=== PATIENT | male | born 1985 | race Caucasian/White ===

== ENCOUNTER 2017-06-01 13:42 | Emergency (ER) | payer SELFPAY ==
[~2017-06-01] VITALS: Ht 172.7 cm; Wt 63.5 kg
[2017-06-01 14:01] VITALS: BP 108/60
[2017-06-01] MEDS ORDERED: CLON1TAB3 PO (14:37)
[2017-06-01] MEDS ORDERED: ESCITALOPRAM OX10 MG PO (14:37)
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
== END 2017-06-01 14:56 | disposition home or self-care (01) ==
LOC: ER 13:42
DX: Z76.0 Encounter for issue of repeat prescription (principal); F98.8 Other specified behavioral and emotional disorders with onset usually occurring in childhood and adolescence; Z88.8 Allergy status to other drugs, medicaments and biological substances
CPT/HCPCS: 99283

== ENCOUNTER 2017-10-11 14:36 | Emergency (ER) | payer SELFPAY ==
[2017-10-11] MEDS ORDERED: CONTRAST GIVEN MC (15:45)
[2017-10-11 16:12] LABS: BASO % 0 % (0-3); EOS # 0.1 x10^3/uL (0.0-0.7); EOS % 0 % (0-3); HEMATOCRIT 50.4 % (39.0-53.0); HEMOGLOBIN 16.9 g/dL (13.0-17.5); LYMPH # 0.4 x10^3/uL (1.0-4.8); LYMPH % 3 % (24-48); MEAN CORPUSCULAR HEMOGLOBIN 31 pg (25-35); MEAN CORPUSCULAR HGB CONC 34 g/dL (31-37); MEAN CORPUSCULAR VOLUME 93 fL (79-100); MONO # 0.6 x10^3/uL (0.0-1.1); MONO % 4 % (0-9); NEUT # 14.5 x10^3uL (1.8-7.7); NEUT % 93 % (31-73); PLATELET COUNT 294 x10^3/uL (140-400); RED BLOOD COUNT 5.41 x10^6/uL (4.30-5.70); RED CELL DISTRIBUTION WIDTH 13.8 % (11.5-14.5); WHITE BLOOD COUNT 15.6 x10^3/uL (4.0-11.0)
[2017-10-11 16:14] LABS: ADD MAN DIFF? YES
[2017-10-11 16:43] LABS: ANION GAP 15 (6-14); BLOOD UREA NITROGEN 25 mg/dL (8-26); BUN/CREATININE RATIO 25 (6-20); CALCIUM 10.1 mg/dL (8.5-10.1); CARBON DIOXIDE 25 mmol/L (21-32); CHLORIDE 100 mmol/L (98-107); GFR 86.1; GLUCOSE 102 mg/dL (70-99); POTASSIUM 4.1 mmol/L (3.5-5.1); SODIUM 140 mmol/L (136-145)
[2017-10-11 16:48] LABS: BILIRUBIN,URINE SMALL (NEG); CLARITY,URINE CLEAR; COLOR,URINE AMBER; GLUCOSE,URINE NEGATIVE (NEG); NITRITE,URINE NEGATIVE (NEG); PROTEIN,URINE NEGATIVE (NEG-TRACE); UROBILINOGEN,URINE 0.2 mg/dL (0.2 mg/dL)
[2017-10-11 16:54] LABS: ALBUMIN 4.9 g/dL (3.4-5.0); ALBUMIN/GLOBULIN RATIO 1.2 (1.0-1.7); ALK PHOS 72 U/L (46-116); ALT (SGPT) 23 U/L (16-63); AST (SGOT) 23 U/L (15-37); LIPASE 80 U/L (73-393); TOTAL BILIRUBIN 2.2 mg/dL (0.2-1.0); TOTAL PROTEIN 8.9 g/dL (6.4-8.2)
[2017-10-11] MEDS: IOHEXOL 300 MG/ML 100ML VIAL. IV (16:56)
[2017-10-11 17:09] LABS: BACTERIA,URINE 0 /HPF (0-FEW); RBC,URINE 0 /HPF (0-2); WBC,URINE OCC /HPF (0-4)
[2017-10-11 17:10] LABS: HYALINE CASTS, URINE OCCASIONAL /HPF
[2017-10-11 20:59] LABS: % EOS 1 % (0-5); % LYMPHS 4 % (24-48); % MONOS 2 % (0-10); % SEGS 93 % (35-66); PLATELET CLUMP PRESENT; PLT ESTIMATE ADEQUATE (ADEQUATE)
[2017-10-11 21:00] LABS: OVALOCYTES OCC; POLYCHROMASIA SLIGHT
== END 2017-10-11 19:20 | disposition left against medical advice (07) ==
LOC: ER 14:36
DX: R10.13 Epigastric pain (principal); F32.9 Major depressive disorder, single episode, unspecified; F41.9 Anxiety disorder, unspecified
CPT/HCPCS: 36415; 74177; 80053; 81001; 83690; 85007; 85025; 93005; 99285-25; Q9967

== ENCOUNTER 2018-11-22 18:38 | Emergency (ER) | payer SELFPAY ==
[~2018-11-22] VITALS: Ht 172.7 cm; Wt 61.2 kg
[~2018-11-22 18:38] MED LIST: CLON1TAB11 PO; ESCITALOPRAM OX10 MG PO
[2018-11-22] MEDS ORDERED: ONDANSETRON ODT 4 MG TAB.RAPDIS. PO ONE (19:00)
[2018-11-22] MEDS ORDERED: LIDO:MAALOX 1:1 20 ML SINGLE DOSE. SWSW ONE (19:00)
[2018-11-22] MEDS ORDERED: FAMOTIDINE 20 MG TABLET. PO ONE (19:00)
[2018-11-22 19:18] VITALS: BP 100/71
--- NOTE | 2018-11-22 19:50 | PHYS DOC ---
Past Medical History Past Medical History: Anxiety, Depression, Pancreatitis, Other Additional Past Medical Histor: ADD Past Surgical History: No Surgical History Additional Information: < 0.25 PPD Alcohol Use: Occasionally Drug Use: Heroin, Methamphetamine Social History Narrative: LAST USED METH 11/21/2018 Adult General Chief Complaint Chief Complaint: ABDOMINAL PAIN HPI HPI Patient is a 33 year old MALE with history of pancreatitis who presents acute onset epigastric pain radiating to her chest 30 minutes prior to ED arrival. Pain described as sharp and burning rated moderate to severe. Patient was eating chicken wings at this time here denies choking, coughing spell. Reports nausea with vomiting 1. No flank pain, back pain. No hematemesis, coffee- ground emesis or foreign body sensation. No melena or hematochezia. No other acute symptoms or complaints. Review of Systems Review of Systems Review symptoms as per history of present illness. All other review symptoms are negative.] All other systems were reviewed and found to be within normal limits, except as documented in this note. Current Medications Current Medications Current Medications Medications (Trade) Dose Ordered Sig/Ayden Start Time Stop Time Status Last Admin Dose Admin Famotidine (Pepcid) 20 mg 1X ONCE 11/22/18 19:00 11/22/18 19:01 DC 11/22/18 19:00 20 MG Multi-Ingredient Mouthwash/Gargle (Gi Cocktail) 20 ml 1X ONCE 11/22/18 19:00 11/22/18 19:01 DC 11/22/18 19:01 20 ML Ondansetron HCl (Zofran Odt) 4 mg 1X ONCE 11/22/18 19:00 11/22/18 19:01 DC 11/22/18 19:00 4 MG Allergies Allergies Allergies Coded Allergies Type Severity Reaction Last Updated Verified promethazine Allergy Intermediate 11/22/18 Yes Physical Exam Physical Exam Constitutional: Well developed, well nourished, discomfort secondary to pain.. [ ] HENT: Normocephalic, atraumatic, bilateral external ears normal, oropharynx moist, nose normal. [] Eyes: PERRLA, EOMI, conjunctiva normal, no discharge. [] Neck: Normal range of motion, no tenderness, supple, no stridor. [] Cardiovascular:Heart rate regular rhythm, no murmur [] Lungs & Thorax: Bilateral breath sounds clear to auscultation [] Abdomen: Bowel sounds normal, soft, epigastric pain, tenderness reproducing complaint. No rebound rigidity or guarding[] Skin: Warm, dry. [] Back: No tenderness. [] Extremities: No tenderness. [] Neurologic: Alert and oriented X 3, normal motor function, normal sensory function, no focal deficits noted. [] Psychologic: Affect normal, judgement normal, mood normal. [] Current Patient Data Vital Signs Vital Signs Date Time Temp Pulse Resp B/P (MAP) Pulse Ox O2 Delivery O2 Flow Rate FiO2 11/22/18 19:18 64 15 100/71 (81) 95 Room Air 11/22/18 18:43 98.3 98.3 EKG EKG [] Radiology/Procedures Radiology/Procedures [] Course & Med Decision Making Course & Med Decision Making Pertinent Labs and Imaging studies reviewed. (See chart for details) [Pain is fully resolved with Pepcid, Zofran and GI cocktail. Patient sleeping on reevaluation. Recommend supportive care, PCP follow-up. Return precautions reviewed.] Dragon Disclaimer Dragon Disclaimer This electronic medical record was generated, in whole or in part, using a voice recognition dictation system. Departure Departure Impression: Primary Impression: Esophagitis Additional Impression: Epigastric pain Disposition: HOME, SELF-CARE Condition: GOOD Patient Instructions: Esophagitis Additional Instructions: Please take Pepcid 20 mg OTC twice daily and Maalox as needed for additional relief. Avoid spicy food, caffeine and alcohol. Follow-up with your PCP in 3-5 days for reevaluation. Return to the ED if new or worsening symptoms. Problem Qualifiers LYNN FUENTES DO Nov 22, 2018 19:50
--- NOTE | 2018-11-24 13:51 | EKG ---
[facility] [address] [place] [address] Test Date: 2018-11-22 Test Time: 19:00:36 Pat Name: JORGE OKEEFE Department: Room: Gender: [employer] Manager: : 1985 Requested By: LYNN FUENTES Order Number: [id number] Reading MD: Tommie Ocasio Measurements Intervals [place] Rate: P: NC: QRS: QRSD: T: QT: QTc: Interpretive Statements Compared to ECG 10/11/2017 16:40:50 Sinus tachycardia no longer present Electronically Signed On 11-26-2018 8:58:41 [employer] by Tommie Ocasio
== END 2018-11-22 19:39 | disposition home or self-care (01) ==
LOC: ER 18:38
DX: K20.9 Esophagitis, unspecified (principal); R11.2 Nausea with vomiting, unspecified; F41.9 Anxiety disorder, unspecified; F32.9 Major depressive disorder, single episode, unspecified; F17.200 Nicotine dependence, unspecified, uncomplicated; Z88.8 Allergy status to other drugs, medicaments and biological substances
CPT/HCPCS: 93005; 99284; Q0162

== ENCOUNTER 2019-09-26 12:21 | Emergency (ER) | payer SELFPAY ==
[~2019-09-26] VITALS: Ht 172.7 cm; Wt 65.8 kg
[~2019-09-26 12:21] MED LIST changes: -CLON1TAB11 PO; +CLONAZEPAM1 MG PO
[2019-09-26] MEDS ORDERED: IV NORMAL SALINE 1000ML BAG 1,000 ML IV SCH (13:04)
[2019-09-26] MEDS ORDERED: fentaNYL PF VIAL 100 MCG/2 ML VIAL IV ONE (13:15)
[2019-09-26] MEDS ORDERED: ONDANSETRON PF 4 MG/2 ML VIAL. IV ONE (13:15)
[2019-09-26 13:16] LABS: BASO # 0.1 x10^3/uL (0.0-0.2); BASO % 1 % (0-3); EOS # 0.1 x10^3/uL (0.0-0.7); EOS % 1 % (0-3); HEMATOCRIT 39.4 % (39.0-53.0); HEMOGLOBIN 13.5 g/dL (13.0-17.5); LYMPH # 1.7 x10^3/uL (1.0-4.8); LYMPH % 24 % (24-48); MEAN CORPUSCULAR HEMOGLOBIN 32 pg (25-35); MEAN CORPUSCULAR HGB CONC 34 g/dL (31-37); MEAN CORPUSCULAR VOLUME 92 fL (79-100); MONO # 0.6 x10^3/uL (0.0-1.1); MONO % 8 % (0-9); NEUT # 4.8 x10^3/uL (1.8-7.7); NEUT % 66 % (31-73); PLATELET COUNT 265 x10^3/uL (140-400); RED BLOOD COUNT 4.28 x10^6/uL (4.30-5.70); RED CELL DISTRIBUTION WIDTH 13.4 % (11.5-14.5); WHITE BLOOD COUNT 7.2 x10^3/uL (4.0-11.0)
[2019-09-26 13:26] LABS: CALCIUM 9.1 mg/dL (8.5-10.1); CREATININE 1.1 mg/dL (0.7-1.3); GFR 76.2; POTASSIUM 4.4 mmol/L (3.5-5.1)
[2019-09-26] MEDS ORDERED: KETOROLAC 30 MG/ML VIAL. IVP ONE (13:30)
[2019-09-26 13:32] LABS: ALBUMIN 4.4 g/dL (3.4-5.0); ALBUMIN/GLOBULIN RATIO 1.2 (1.0-1.7); TOTAL BILIRUBIN 1.1 mg/dL (0.2-1.0)
[2019-09-26] MEDS ORDERED: MORPHINE SULFATE 10 MG/ML VIAL. IV ONE (13:45)
--- NOTE | 2019-09-26 14:11 | RAD ---
Examination: CT of the abdomen pelvis were performed without contrast HISTORY: History of left lower quadrant abdominal pain COMPARISON: 10/11/2017 TECHNIQUE: Axial CT images of the abdomen pelvis were performed without contrast. Coronal and sagittal reformats are performed Exposure: One or more of the following individualized dose reduction techniques were utilized for this examination: 1. Automated exposure control 2. Adjustment of the mA and/or kV according to patient size 3. Use of iterative reconstruction technique FINDINGS: Minimal groundglass airspace opacities identified in the left lung base likely atelectasis or infiltrates. No evidence of free air identified in the abdomen. The evaluation of the solid organs is limited due to lack of IV contrast. The evaluation of bowel is limited due to lack of oral contrast. The visualized noncontrasted liver, spleen, adrenals grossly appears unremarkable. The gallbladder is mildly distended. The stomach is mildly distended. The visualized pancreas grossly appears unremarkable. Small bowel is nondilated. Appendix is normal. Feces and gas noted in the colon Mild left-sided hydronephrosis and hydroureter is identified with a 4 mm calculus identified at the left ureterovesical junction. No evidence of lytic bony destructive lesion. IMPRESSION: 1. Mild left-sided hydronephrosis and hydroureter with a 4 mm calculus identified at the left uterovesical junction. 2. Minimal groundglass atelectasis or infiltrates left lung base likely atelectasis or infiltrates. Follow-up to resolution. Electronically signed by: Ryan Meléndez MD (09/26/2019 2:08 PM) [facility]
[2019-09-26] MEDS ORDERED: TAMSULOSIN 0.4 MG CAP.ER.24H. PO ONE (14:15)
[2019-09-26 15:02] LABS: BILIRUBIN,URINE NEGATIVE (NEG); CLARITY,URINE CLOUDY; COLOR,URINE AMBER; NITRITE,URINE NEGATIVE (NEG); PH,URINE 8.5; PROTEIN,URINE 100 mg/dL (NEG-TRACE)
[2019-09-26 15:07] LABS: BARBITURATES NEG (NEG); BENZODIAZEPINES NEG (NEG); CANNABINOIDS NEG (NEG); COCAINE NEG (NEG); METHADONE NEG (NEG); OPIATES POS (NEG); PHENCYCLIDINE NEG (NEG)
[2019-09-26 15:08] LABS: AMPHETAMINE/METHAMPHETAMINE NEG (NEG)
[2019-09-26 15:14] LABS: BACTERIA,URINE 0 /HPF (0-FEW); RBC,URINE TNTC /HPF (0-2)
[2019-09-26] MEDS ORDERED: TAMS0.4C97 PO (15:24)
[2019-09-26] MEDS ORDERED: IBUP-1007 PO (15:24)
--- NOTE | 2019-09-26 15:24 | PHYS DOC ---
Past Medical History Past Medical History: Anxiety, Depression, Pancreatitis, Other Additional Past Medical Histor: ADHD, OPIATE ADDICTION Past Surgical History: No Surgical History Alcohol Use: None Drug Use: Heroin, Methamphetamine Social History Narrative: PREVIOUS DRUG USE - NOW RECOVERING Adult General Chief Complaint Chief Complaint: ABDOMINAL PAIN [facility] HPI Patient is a 34 year old male with history of anxiety and depression, ADHD,. Heroine addiction on Suboxone who presents with complaint of abdominal pain. Patient complaining of sudden onset of left lower quadrant pain that started about an over prior to arrival to ER as a sharp and stabbing pain with radiation to the left groin without nausea and vomiting, urinary symptoms, fever and chills, diarrhea and constipation, history of kidney stones the same pain previously. Patient rated his pain 10 over 10. Review of Systems Review of Systems Constitutional: Denies fever or chills [] Eyes: Denies change in visual acuity, redness, or eye pain [] HENT: Denies nasal congestion or sore throat [] Respiratory: Denies cough or shortness of breath [] Cardiovascular: No additional information not addressed in HPI [] GI: Denies nausea, vomiting, bloody stools or diarrhea, reports abdominal pain : Denies dysuria or hematuria [] Musculoskeletal: Denies back pain or joint pain [] Integument: Denies rash or skin lesions [] Neurologic: Denies headache, focal weakness or sensory changes [] Endocrine: Denies polyuria or polydipsia [] All other systems were reviewed and found to be within normal limits, except as documented in this note. Current Medications Current Medications Current Medications Medications (Trade) Dose Ordered Sig/Ayden Start Time Stop Time Status Last Admin Dose Admin Fentanyl Citrate (Fentanyl 2ml Vial) 50 mcg 1X ONCE 09/26/19 13:15 09/26/19 13:16 DC 09/26/19 13:14 50 MCG Ketorolac Tromethamine (Toradol 30mg Vial) 30 mg 1X ONCE 09/26/19 13:30 09/26/19 13:31 DC 09/26/19 13:34 30 MG Morphine Sulfate (Morphine Sulfate) 5 mg 1X ONCE 09/26/19 13:45 09/26/19 13:46 DC 09/26/19 13:45 5 MG Ondansetron HCl (Zofran) 4 mg 1X ONCE 09/26/19 13:15 09/26/19 13:16 DC 09/26/19 13:14 4 MG Sodium Chloride 1,000 ml @ 1,000 mls/hr Q1H 09/26/19 13:04 09/26/19 14:03 DC 09/26/19 13:14 1,000 MLS/HR Tamsulosin HCl (Flomax) 0.4 mg 1X ONCE 09/26/19 14:15 09/26/19 14:18 DC 09/26/19 15:06 0.4 MG Allergies Allergies Allergies Coded Allergies Type Severity Reaction Last Updated Verified promethazine Allergy Intermediate 11/22/18 Yes Physical Exam Physical Exam Constitutional: Well developed, well nourished, moderate distress, non-toxic appearance. [] HENT: Normocephalic, atraumatic. Eyes: PERRLA, EOMI, conjunctiva normal, no discharge. [] Neck: Normal range of motion, no tenderness, supple, no stridor. [] Cardiovascular:Heart rate regular rhythm, no murmur [] Lungs & Thorax: Bilateral breath sounds clear to auscultation [] Abdomen: Bowel sounds normal, soft, no tenderness, no masses, no pulsatile masses. [] Skin: Warm, dry, no erythema, no rash. [] Back: No tenderness, no CVA tenderness. [] Extremities: No tenderness, no cyanosis, no clubbing, ROM intact, no edema. [] Neurologic: Alert and oriented X 3, no focal deficits noted. [] Psychologic: Affect anxious, judgement normal, mood normal. [] Current Patient Data Vital Signs Vital Signs Date Time Temp Pulse Resp B/P (MAP) Pulse Ox O2 Delivery O2 Flow Rate FiO2 09/26/19 13:45 20 96 Room Air 09/26/19 12:45 97.6 62 121/73 (89) 97.6 Lab Values Laboratory Tests Test 09/26/19 12:42 09/26/19 14:48 White Blood Count 7.2 x10^3/uL (4.0-11.0) Red Blood Count 4.28 x10^6/uL (4.30-5.70) L Hemoglobin 13.5 g/dL (13.0-17.5) Hematocrit 39.4 % (39.0-53.0) Mean Corpuscular Volume 92 fL (79-100) Mean Corpuscular Hemoglobin 32 pg (25-35) Mean Corpuscular Hemoglobin Concent 34 g/dL (31-37) Red Cell Distribution Width 13.4 % (11.5-14.5) Platelet Count 265 x10^3/uL (140-400) Neutrophils (%) (Auto) 66 % (31-73) Lymphocytes (%) (Auto) 24 % (24-48) Monocytes (%) (Auto) 8 % (0-9) Eosinophils (%) (Auto) 1 % (0-3) Basophils (%) (Auto) 1 % (0-3) Neutrophils # (Auto) 4.8 x10^3/uL (1.8-7.7) Lymphocytes # (Auto) 1.7 x10^3/uL (1.0-4.8) Monocytes # (Auto) 0.6 x10^3/uL (0.0-1.1) Eosinophils # (Auto) 0.1 x10^3/uL (0.0-0.7) Basophils # (Auto) 0.1 x10^3/uL (0.0-0.2) Sodium Level 143 mmol/L (136-145) Potassium Level 4.4 mmol/L (3.5-5.1) Chloride Level 104 mmol/L (98-107) Carbon Dioxide Level 27 mmol/L (21-32) Anion Gap 12 (6-14) Blood Urea Nitrogen 12 mg/dL (8-26) Creatinine 1.1 mg/dL (0.7-1.3) Estimated GFR (Cockcroft-Gault) 76.2 BUN/Creatinine Ratio 11 (6-20) Glucose Level 144 mg/dL (70-99) H Calcium Level 9.1 mg/dL (8.5-10.1) Total Bilirubin 1.1 mg/dL (0.2-1.0) H Aspartate Amino Transferase (AST) 29 U/L (15-37) Alanine Aminotransferase (ALT) 48 U/L (16-63) Alkaline Phosphatase 64 U/L (46-116) Total Protein 8.0 g/dL (6.4-8.2) Albumin 4.4 g/dL (3.4-5.0) Albumin/Globulin Ratio 1.2 (1.0-1.7) Urine Opiates Screen Pos (NEG) Urine Methadone Screen Neg (NEG) Urine Barbiturates Neg (NEG) Urine Phencyclidine Screen Neg (NEG) Urine Amphetamine/Methamphetamine Neg (NEG) Urine Benzodiazepines Screen Neg (NEG) Urine Cocaine Screen Neg (NEG) Urine Cannabinoids Screen Neg (NEG) Urine Ethyl Alcohol Neg (NEG) Laboratory Tests 09/26/19 12:42 Laboratory Tests 09/26/19 12:42 EKG EKG [] Radiology/Procedures Radiology/Procedures [][facility] [address] [place] [address] IMAGING REPORT Signed PATIENT: JORGE OKEEFE ACCOUNT: [id number] : 1985 LOCATION: ER AGE: 34 SEX: M EXAM STATUS: REG ER ORD. PHYSICIAN: BAYRON LITTLE MD REASON: left lower quadrant pain PROCEDURE: CT ABDOMEN PELVIS WO CONTRAST Examination: CT of the abdomen pelvis were performed without contrast HISTORY: History of left lower quadrant abdominal pain COMPARISON: 10/11/2017 TECHNIQUE: Axial CT images of the abdomen pelvis were performed without contrast. Coronal and sagittal reformats are performed Exposure: One or more of the following individualized dose reduction techniques were utilized for this examination: 1. Automated exposure control 2. Adjustment of the mA and/or kV according to patient size 3. Use of iterative reconstruction technique FINDINGS: Minimal groundglass airspace opacities identified in the left lung base likely atelectasis or infiltrates. No evidence of free air identified in the abdomen. The evaluation of the solid organs is limited due to lack of IV contrast. The evaluation of bowel is limited due to lack of oral contrast. The visualized noncontrasted liver, spleen, adrenals grossly appears unremarkable. The gallbladder is mildly distended. The stomach is mildly distended. The visualized pancreas grossly appears unremarkable. Small bowel is nondilated. Appendix is normal. Feces and gas noted in the colon Mild left-sided hydronephrosis and hydroureter is identified with a 4 mm calculus identified at the left ureterovesical junction. No evidence of lytic bony destructive lesion. IMPRESSION: 1. Mild left-sided hydronephrosis and hydroureter with a 4 mm calculus identified at the left uterovesical junction. 2. Minimal groundglass atelectasis or infiltrates left lung base likely atelectasis or infiltrates. Follow-up to resolution. Electronically signed by: Ryan Meléndez MD (09/26/2019 2:08 PM) [facility] DICTATED and SIGNED BY: RYAN MELÉNDEZ MD DATE: 09/26/19 4139 Course & Med Decision Making Course & Med Decision Making Pertinent Labs and Imaging studies reviewed. (See chart for details) Evolution of patient in ER showed 34-year-old male patient with complaining of sudden onset of left lower quadrant pain. Patient treated with IV fluid, fentanyl, Zofran, Toradol, morphine with improvement of his pain. CT showed 4 mm left ureteral stone. Patient was advised to increase fluid intake and follow up with urology on-call and strain all of his urine. Dragon Disclaimer Dragon Disclaimer This electronic medical record was generated, in whole or in part, using a voice recognition dictation system. Departure Departure Impression: Primary Impression: Renal colic on left side Additional Impression: Ureterolithiasis Disposition: HOME, SELF-CARE (at 1522) Condition: IMPROVED Referrals: NO PCP (PCP) Patient Instructions: Diet for Kidney Stones, Kidney Stones Additional Instructions: Drink plenty of liquids Follow-up with urology physician in 2-3 days Return to ER if not getting better Strain all of your urine Thank you for visiting [facility]. We appreciate you trusting us with your care. If any additional problems come up don't hesitate to return to visit us. Please follow up with your primary care provider so they can plan additional care if needed and know about the problem that you had. If symptoms worsen come back to the Emergency Department. Any concerning symptoms that start such as chest pain, shortness of air, weakness or numbness on one side of the body, running high fevers or any other concerning symptoms return to the ER. Scripts Ibuprofen (IBUPROFEN) 600 Mg Tablet 600 MG PO PRN Q6HRS PRN for PAIN, #20 TAB take with food or milk Prov: BAYRON LITTLE MD 09/26/19 Tamsulosin Hcl (FLOMAX) 0.4 Mg Cap.er.24h 1 CAP PO DAILY, #14 CAP 0 Refills Prov: BAYRON LITTLE MD 09/26/19 Problem Qualifiers BAYRON LITTLE MD Sep 26, 2019 15:24
[2019-09-26 15:26] VITALS: BP 111/71
== END 2019-09-26 15:36 | disposition home or self-care (01) ==
LOC: ER 12:21
DX: N13.2 Hydronephrosis with renal and ureteral calculous obstruction (principal); N23 Unspecified renal colic; N20.1 Calculus of ureter; F41.9 Anxiety disorder, unspecified; F32.9 Major depressive disorder, single episode, unspecified; F90.9 Attention-deficit hyperactivity disorder, unspecified type; F15.90 Other stimulant use, unspecified, uncomplicated; F12.10 Cannabis abuse, uncomplicated; Z79.899 Other long term (current) drug therapy; Z88.8 Allergy status to other drugs, medicaments and biological substances
CPT/HCPCS: 36415; 74176; 80053; 80307; 81001; 85025; 87086; 96374; 96375; 99285; J1885; J2270; J2405; J3010; J7030

== ENCOUNTER 2021-04-22 22:48 | Emergency (ER) | payer SELFPAY ==
[~2021-04-22] VITALS: Ht 172.7 cm; Wt 63.6 kg
[~2021-04-22 22:48] MED LIST changes: +IBUP-1007 PO; +TAMS0.4C97 PO
[2021-04-23] VITALS: BP 117/81
[2021-04-23] MEDS ORDERED: FLUORESCEIN OPHTH TEST STRIP. OD ONE (01:30)
[2021-04-23] MEDS ORDERED: TETRACAINE 0.5% OPHTH SOLUTION 4ML BOTTLE. OD ONE (01:30)
[2021-04-23] MEDS ORDERED: DEXT15DR5 LEFTEYE (02:05)
[2021-04-23] MEDS ORDERED: POLY10DR EACHEYE (02:05)
--- NOTE | 2021-04-23 02:06 | PHYS DOC ---
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 Reports he kept his contact lenses into long and woke up with a red eye, initially thought sawdust got in his eye. Has since removed his right contact lens. Denies any eye pain, decreased vision/vision loss or photophobia. Does report mucousy discharge. No associated cough, sore throat, lack of taste or smell, nausea, vomiting, cough, sinus pressure, earache or shortness of breath-denies use URI symptoms. Left eye is unaffected. Review of Systems: Review of Systems: Constitutional: Denies fever or chills. [] Eyes: Denies change in visual acuity. [] HENT: Denies nasal congestion or sore throat. [] Respiratory: Denies cough or shortness of breath. [] Cardiovascular: Denies chest pain or hemoptysis GI: Denies , nausea, vomiting, : Denies dysuria or hematuria Musculoskeletal: Denies back pain or swelling Integument: Denies rash or diaphoresis Neurologic: Denies headache or neck pain Psychiatric: Denies depression or anxiety. [] Heart Score: C/O Chest Pain: No Risk Factors: Risk Factors: DM, Current or recent (<one month) smoker, HTN, HLP, family history of CAD, obesity. Risk Scores: Score 0 - 3: 2.5% MACE over next 6 weeks - Discharge Home Score 4 - 6: 20.3% MACE over next 6 weeks - Admit for Clinical Observation Score 7 - 10: 72.7% MACE over next 6 weeks - Early Invasive Strategies Current Medications: Current Medications Medications (Trade) Dose Ordered Sig/Ayden Start Time Stop Time Status Last Admin Dose Admin Fluorescein Sodium (Ful-Nydia) 1 strip 1X ONCE 04/23/21 01:30 04/23/21 01:31 DC 04/23/21 01:55 1 STRIP Tetracaine HCl (Tetracaine) 1 drop 1X ONCE 04/23/21 01:30 04/23/21 01:31 DC 04/23/21 01:55 1 DROP Allergies: Allergies: Allergies Coded Allergies Type Severity Reaction Last Updated Verified promethazine Allergy Intermediate 11/22/18 Yes Physical Exam: PE: Constitutional: Well developed, well nourished, no acute distress, non-toxic appearance. HENT: Normocephalic, atraumatic, Eyes: PERRLA-4mm, EOMI, right conjunctival injection, no ciliary flush, no c orneal uptake with Johnson lamp and fluorescein exam/Michele sign negative, no dendritic lesions or ulcers, no foreign body visualized, tolerated exam with no epiphora or photophobia, normal-appearing pupil with no haziness or rockhard appearance Neck: Normal range of motion, supple, Cardiovascular: S1/2 present, regular rhythm Lungs & Thorax: Speaking in full sentences, bilateral equal chest rise, no tachypnea or increased work of breathing Skin: Warm, dry, no erythema, no rash. [] Extremities: No tenderness, no cyanosis, Neurologic: Alert and oriented X 3, no focal deficits noted. [] Psychologic: Affect normal, judgement normal, mood normal. [] Current Patient Data: Vital Signs: Vital Signs Date Time Temp Pulse Resp B/P (MAP) Pulse Ox O2 Delivery O2 Flow Rate FiO2 04/23/21 00:00 97.9 72 18 117/81 (84) 100 Room Air 97.9 EKG: EKG: [] Radiology/Procedures: Radiology/Procedures: [] Course & Med Decision Making: Course & Med Decision Making Pertinent Labs and Imaging studies reviewed. (See chart for details) Concern for right conjunctival irritation/injection, will treat for conjunctivitis. Will discharge home with strict ED return precautions were given for blurry vision or vision loss, severe eye pain, headache or neurologic deficit. Encouraged urgent outpatient follow-up with PMD and ophthalmology. Life-threatening processes were considered but are low suspicion at this time, given history, physical exam and ED workup. Pt was educated on all prescription medications and adverse effects. All patient's questions were answered and pt was stable at time of discharge. Life/limb-threatening differential includes but is not limited to, meningitis, encephalitis, intracranial hemorrhage, obstructive hydrocephaly, CVA, carbon monoxide poisoning, cerebral or cavernous venous thrombosis, hypertensive emergency, preeclampsia, giant cell arteritis, glaucoma, carotid or vertebral artery dissection, superior vena cava syndrome, infection, optic neuritis, or space-occupying lesions. I have spoken with the patient and/or caregivers. I explained the patient's condition, diagnoses and treatment plan based on the information available to me at this time. I have answered the patient and/or caregiver's questions and addressed any concerns. The patient and/or caregivers have a good understanding of patient's diagnosis, condition and treatment plan as can be expected at this point. Vital signs have been stable. Patient's condition is stable and appropriate for discharge from the emergency department. Patient will pursue further outpatient evaluation with primary care physician or other designated or consulting physician as outlined in the discharge instructions. The patient and/or caregivers are agreeable to this plan of care and follow-up instructions have been explained in detail. The patient and/or caregivers have received these instructions in written form and have expressed an understanding of the discharge instructions. The patient and/or caregivers are aware that any significant change of condition or worsening of symptoms should prompt immediate return to this or the closest emergency department or call to [facility] Disclaimer: Barby Disclaimer: This electronic medical record was generated, in whole or in part, using a voice recognition dictation system. Departure Departure Impression: Primary Impression: Conjunctivitis, right eye Additional Impression: Conjunctival injection Disposition: 01 HOME / SELF CARE / HOMELESS Condition: STABLE Referrals: NO PCP (PCP) Follow-up with your primary care physician in 24 to 48 hours OR FOLLOW UP WITH FAMILY MEDICINE: [address] [facility], [facility] [address] [place] [address] Patient Instructions: Conjunctivitis (Viral and Bacterial) Additional Instructions: FOLLOW UP WITH OPTHALMOLOGY: FOR DEFINITIVE MANAGEMENT [facility], [place] [address] [place], [address] [place] [address] EMERGENCY DEPARTMENT GENERAL DISCHARGE INSTRUCTIONS Thank you for coming to [facility] Emergency Department (ED) today and trusting us with you care. We trust that you had a positive experience in our Emergency Department. If you wish to speak to the department management, you may call the Director at [phone]. YOUR FOLLOW UP INSTRUCTIONS ARE FOLLOWS: 1. Do you have a private Doctor? If you do not have a private doctor, please ask for a resource list of physicians or clinics that may be able to assist you with follow up care. 2. The Emergency Physicain has interpreted your x-rays. The X-Ray specialist will also review them. If there is a change in the findings, you will be notified in 48 hours when at all possible. 3. A lab test or culture has been done, your results will be reviewed and you will be notified if you need a change in treatment. ADDITIONAL INSTRUCTIONS AND INFORMATION: 1. Your care today has been supervised by a physician who is specially trained in emergency care. Many problems require more than one evaluation for a complete diagnosis and treatment. We recommend that you schedule your follow up appointment as recommended to ensure complete treatment of you illness or injury. If you are unable to obtain follow up care and continue to have a problem, or if your condition worsens, we recommend that you return to the ED. 2. We are not able to safely determine your condition over the phone nor are we able to give sound medical advice over the phone. For these safety reasons, if you call for medical advice we will ask you to come to the ED for further evaluation. 3. If you have any questions regarding these discharge instructions please call the ED at [phone]. SAFETY INFORMATION: In the interest of safety, wellness, and injury prevention; we encourage you to wear your sealbelt, if you smoke; quite smoking, and we encourage family to use a protective helmet for bicycling and other sporting events that present an increased risk for head injury. IF YOUR SYMPTOMS WORSEN OR NEW SYMPTOMS DEVELOP, OR YOU HAVE CONCERNS ABOUT YOUR CONDITION; OR IF YOUR CONDITION WORSENS WHILE YOU ARE WAITING FOR YOUR FOLLOW UP APPOINTMENT; EITHER CONTACT YOUR PRIMARY CARE DOCTOR, THE PHYSICIAN WHOSE NAME AND NUMBER YOU WERE GIVEN, OR RETURN TO THE ED IMMEDIATELY. Scripts Dextran 70/Hypromellose (ARTIFICIAL TEARS EYE DROPS) 15 Ml Drops 1 DROP LEFTEYE Q1HR PRN for dry eye for 7 Days, #30 ML 0 Refills every hour while awake Prov: RICKIE EUCEDA DO 04/23/21 Polymyxin B Sulf/Trimethoprim (POLYTRIM EYE DROPS) 10 Ml Drops 2 DROP EACHEYE Q6HRS for 7 Days, #10 ML no contact lens x 1 week Prov: RICKIE EUCEDA DO 04/23/21 [facility],RICKIE Adkins DO Apr 23, 2021 02:06
== END 2021-04-23 02:19 | disposition home or self-care (01) ==
LOC: ER 22:48
DX: H10.9 Unspecified conjunctivitis (principal); F90.9 Attention-deficit hyperactivity disorder, unspecified type; Z87.891 Personal history of nicotine dependence
CPT/HCPCS: 99283

== ENCOUNTER 2021-12-15 20:33 | Emergency (ER) | payer OTHER ==
[~2021-12-15] VITALS: Ht 172.7 cm; Wt 63.6 kg
[~2021-12-15 20:33] MED LIST changes: +BUPR150T27 PO; +BUPR8TAB SL; +CLON0.1T PO; +DEXT15DR5 LEFTEYE; +POLY10DR EACHEYE
[2021-12-15 20:48] VITALS: BP 134/89
[2021-12-15] MEDS ORDERED: AMOX1TAB11 PO (21:16)
[2021-12-15] MEDS ORDERED: CIPR500T94 PO (21:16)
--- NOTE | 2021-12-15 21:18 | ED.ADGEN ---
Past Medical History Past Medical History: Anxiety, Depression, Pancreatitis, Other Additional Past Medical Histor: ADHD, OPIATE ADDICTION Past Surgical History: Other Additional Past Surgical Histo: LITHOTRIPSY Smoking Status: Current Every Day Smoker Alcohol Use: None Drug Use: Heroin, Methamphetamine General Adult EDM: Chief Complaint: ABRASION HPI: HPI: Patient is a 36 year old presenting with injury to the plantar aspect of his right foot. Patient states he was walking collecting firewood when he stepped on a metal piece that went through his shoe. Patient remove the piece intact. Patient is concerned because his tetanus is 7 years ago and a piece of metal was mena. His male to ambulate not since been cleaned it out. No systemic complaints Review of Systems: Review of Systems: All other systems within normal limits except for as noted in the HPI Allergies: Allergies: Allergies Coded Allergies Type Severity Reaction Last Updated Verified promethazine Allergy Intermediate 11/22/18 Yes Physical Exam: PE: Constitutional: Well developed, well nourished, no acute distress, non-toxic appearance. [] HENT: Normocephalic, atraumatic, bilateral external ears normal, nose normal. [] Eyes: PERRLA, conjunctiva normal, no discharge. [] Neck: No rigidity, supple, no stridor. [] Cardiovascular: Regular rate and rhythm, brisk cap refill [] Lungs & Thorax: Non labored symmetric respirations, no tachypnea or respiratory distress [] Abdomen: Soft, nondistended. Skin: Warm, dry, no erythema, no rash. Linear wound to the ball of right foot. No active bleeding, no foreign bodies, wound superficial [] Back: Unremarkable Extremities: No deformities, range of motion grossly intact, no lower extremity edema [] Neurologic: Alert and oriented X 3, no focal deficits noted. [] Psychologic: Affect normal, judgement normal, mood normal. [] Current Patient Data: Vital Signs: Vital Signs Date Time Temp Pulse Resp B/P (MAP) Pulse Ox O2 Delivery O2 Flow Rate FiO2 12/15/21 20:48 97.5 84 18 134/89 (104) 97 Room Air 97.5 EKG: EKG: [] Heart Score: C/O Chest Pain: No Risk Factors: Risk Factors: DM, Current or recent (<one month) smoker, HTN, HLP, family history of CAD, obesity. Risk Scores: Score 0 - 3: 2.5% MACE over next 6 weeks - Discharge Home Score 4 - 6: 20.3% MACE over next 6 weeks - Admit for Clinical Observation Score 7 - 10: 72.7% MACE over next 6 weeks - Early Invasive Strategies Radiology/Procedures: Radiology/Procedures: [] Course & Med Decision Making: Course & Med Decision Making Tetanus updated. Will treat patient with Pseudomonas coverage since the puncture wound within the sole of her shoe Barby Disclaimer: Barby Disclaimer: This electronic medical record was generated, in whole or in part, using a voice recognition dictation system. Departure Departure Impression: Primary Impression: Puncture wound of plantar aspect of right foot Disposition: HOME / SELF CARE / HOMELESS Condition: STABLE Referrals: NO PCP (PCP) Patient Instructions: Puncture Wound Scripts Amoxicillin/Potassium Clav (AMOX TR-K CLV 875-125 MG TAB) 1 Each Tablet 1 TAB PO BID for antibiotic for 7 Days, #14 TAB Prov: SCOT HANSEN MD 12/15/21 Ciprofloxacin Hcl (CIPRO) 500 Mg Tablet 1 TAB PO BID for antibiotic for 7 Days, #14 TAB 0 Refills Prov: SCOT HANSEN MD 12/15/21 SCOT HANSEN MD Dec 15, 2021 21:17
[2021-12-15] MEDS ORDERED: DIPHTH,PERTUSS(ACELL),TET TOX 0.5 ML DISP.SYRIN. VAX IM ONE (21:30)
[2021-12-15] MEDS ORDERED: CIPROFLOXACIN HCL 250 MG TABLET. PO ONE (21:30)
[2021-12-15] MEDS ORDERED: AMOXICILLIN/K CLAV 875/125MG TABLET. PO ONE (21:30)
== END 2021-12-15 22:00 | disposition home or self-care (01) ==
LOC: ER 20:33
DX: S91.331A Puncture wound without foreign body, right foot, initial encounter (principal); F17.200 Nicotine dependence, unspecified, uncomplicated; F90.9 Attention-deficit hyperactivity disorder, unspecified type; Z88.8 Allergy status to other drugs, medicaments and biological substances; W21.31XA Struck by shoe cleats, initial encounter; Y93.01 Activity, walking, marching and hiking; Y92.89 Other specified places as the place of occurrence of the external cause; Y99.8 Other external cause status
CPT/HCPCS: 90471; 90715; 99283-25